=== PATIENT | male | born 1990 | race Caucasian/White ===

== ENCOUNTER → 2017-07-23 | Outpatient (CLI) | payer OTHER ==
[2017-07-23 10:52] LABS: PLATELET COUNT, AUTOMATED 256 K/uL (150-450)
[2017-07-23 13:04] LABS: LDL CHOLESTEROL 122 mg/dl
== END ==
LOC: LAB 10:30
PROVIDERS: ATTEND Internal Medicine
DX: R94.5 Abnormal results of liver function studies (principal); B07.9 Viral wart, unspecified
CPT/HCPCS: 36415; 82040; 82247; 82310; 82374; 82435; 82465; 82565; 82728; 82947; 83540; 83550; 83718; 84075; 84132; 84155; 84295; 84443; 84450; 84460; 84478; 84520; 85025; 86038; 86803

== ENCOUNTER → 2017-12-24 | Outpatient (CLI) | payer OTHER ==
--- NOTE | 2017-12-24 09:37 | RADIOLOGY IMAGING REPORT ---
[place] [facility] [place] NAME: Elza Parikh : 1990 MR: [id number] V: [id number] EXAM DATE: ORDERING PHYSICIAN: SANFORD RASHID TECHNOLOGIST: [facility] Patient: Elza Parikh : 1990 Visit/Account:[id number] Date of Sevice: 12/24/2017 TESTICULAR EXAMINATION: Scrotal ultrasound with duplex Doppler evaluation HISTORY: Testicular pain COMPARISON: None. FINDINGS: Testes: Right testicle measures 4.5 x 2.0 x 3.0 cm in size.. There are no mass lesions with testicle demonst rating normal vascularity Left testicle measures 4.4 x 2.3 x 2.7 cm. . There are no mass lesions testicle demonstrating normal vascular Epididymides: Right epididymal head measures 1 cm. Left epididymal head measures 1.2 cm. Blood flow is appropriate in each epididymis by color Doppler ultrasound. Hydrocele: none Varicocele: none IMPRESSION: 1. Normal testicular ultrasound Report Dictated By: James Boss MD at 12/24/2017 9:10 AM Report E-Signed By: James Boss MD at 12/24/2017 9:33 AM [id number]:[email or web address]
== END ==
LOC: US 02:59
PROVIDERS: ATTEND Internal Medicine
DX: N50.819 Testicular pain, unspecified (principal)
CPT/HCPCS: 76870

== ENCOUNTER → 2018-04-27 | Outpatient (CLI) | payer OTHER ==
[~2018-04-27] MED LIST: AZIT-1 PO
--- NOTE | 2018-04-27 09:47 | RADIOLOGY IMAGING REPORT ---
FAC[place] [facility] [place] NAME: Elza Parikh : 1990 MR: [id number] V: [id number] EXAM DATE: ORDERING PHYSICIAN: VLADIMIR KIM TECHNOLOGIST: Location: [facility] - [place] Patient: Elza Parikh : 1990 Visit/Account:[id number] Date of Sevice: 04/27/2018 Exam type: CHEST PA LAT History: Cough for a month Comparison: None. Findings: The lungs appear free of acute effusions, infiltrates or edema. Cardiac silhouette is normal in size . The trachea is in midline. The visualized bones appear unremarkable for age IMPRESSION: No acute cardiopulmonary process is seen Report Dictated By: Marlen Gonzalez MD at 04/27/2018 9:41 AM Report E-Signed By: Marlen Goznalez MD at 04/27/2018 9:42 AM WSN:[email or web address]
== END ==
LOC: LAB 08:55
PROVIDERS: ATTEND Emergency Medicine
DX: R05 Cough (principal)
CPT/HCPCS: 71046

== ENCOUNTER → 2018-06-03 | Outpatient (CLI) | payer OTHER ==
[~2018-06-03] MED LIST changes: +CYCL10TA29 PO; +PRED20TA6 PO
--- NOTE | 2018-06-03 10:53 | RADIOLOGY IMAGING REPORT ---
FACILITY: [facility] - [place] PATIENT NAME: Elza Parikh : 1990 MR: [id number] V: [id number] EXAM DATE: ORDERING PHYSICIAN: SANFORD RASHID TECHNOLOGIST: [place] [facility] [place] Patient: Elza Parikh : 1990 Visit/Account:[id number] Date of Sevice: 06/03/2018 L-SPINE 2 OR 3 VIEW Indication: back pain Comparison: None. Findings: The vertebral bodies and posterior elements are intact. Disc spaces are normal. Facets ar e normal. IMPRESSION: Normal lumbar spine radiograph. Report Dictated By: Matthew Decker at 06/03/2018 10:47 AM Report E-Signed By: Matthew Decker at 06/03/2018 10:48 AM WSN:[id number]
== END ==
LOC: RAD 10:06
PROVIDERS: ATTEND Internal Medicine
DX: M54.5 Low back pain (principal)
CPT/HCPCS: 72100